=== PATIENT | female | born 1980 | race Caucasian/White ===

== ENCOUNTER → 2024-08-18 10:50 | Outpatient (REF) | payer BC, SELFPAY | LOC: HWWDC 10:50 | PROVIDERS: ATTENDING PHYSICIAN Obstetrics & Gynecology; FAMILY PHYSICIAN Physician Assistant Medical | DX: Z12.31 Encounter for screening mammogram for malignant neoplasm of breast (principal) | CPT/HCPCS: 77063; 77067 ==

== ENCOUNTER → 2024-08-23 09:10 | Outpatient (REF) | payer BC, SELFPAY | LOC: WDC 09:10 | PROVIDERS: ATTENDING PHYSICIAN Obstetrics & Gynecology; FAMILY PHYSICIAN Physician Assistant Medical | DX: R92.8 Other abnormal and inconclusive findings on diagnostic imaging of breast (principal) | CPT/HCPCS: 76642 ==

== ENCOUNTER → 2024-08-29 09:36 | Outpatient (REF) | payer BC, SELFPAY | LOC: HWRAD 09:36 | PROVIDERS: ATTENDING PHYSICIAN Obstetrics & Gynecology; FAMILY PHYSICIAN Physician Assistant Medical; REFERRING PHYSICIAN Urology | DX: R10.2 Pelvic and perineal pain (principal); N39.0 Urinary tract infection, site not specified; M62.89 Other specified disorders of muscle; R35.0 Frequency of micturition; R14.0 Abdominal distension (gaseous) | CPT/HCPCS: 76830; 76856 ==

== ENCOUNTER 2024-10-02 12:51 | Outpatient (RCR) | payer BC, SELFPAY | END 2024-10-02 23:59 | disposition home or self-care (01) | LOC: RPT 12:51 | PROVIDERS: ATTENDING PHYSICIAN Urology; FAMILY PHYSICIAN Nurse Practitioner Adult Health | DX: N39.0 Urinary tract infection, site not specified (principal); M62.89 Other specified disorders of muscle; R10.2 Pelvic and perineal pain; R35.0 Frequency of micturition; R14.0 Abdominal distension (gaseous); Z73.6 Limitation of activities due to disability | CPT/HCPCS: 97140; 97163; 97530 ==

== ENCOUNTER 2024-11-07 06:34 | Outpatient (RCR) | payer BC, SELFPAY | END 2024-11-07 23:59 | disposition home or self-care (01) | LOC: RPT 06:34 | PROVIDERS: ATTENDING PHYSICIAN Urology; FAMILY PHYSICIAN Nurse Practitioner Adult Health | DX: N39.0 Urinary tract infection, site not specified (principal); M62.89 Other specified disorders of muscle; R10.2 Pelvic and perineal pain; R35.0 Frequency of micturition; R14.0 Abdominal distension (gaseous); Z73.6 Limitation of activities due to disability | CPT/HCPCS: 97014; 97110; 97140; 97530 ==

== ENCOUNTER 2024-11-28 11:05 | Outpatient (RCR) | payer BC, SELFPAY | END 2024-11-28 23:59 | disposition home or self-care (01) | LOC: RPT 11:05 | PROVIDERS: ATTENDING PHYSICIAN Urology; FAMILY PHYSICIAN Nurse Practitioner Adult Health | DX: N39.0 Urinary tract infection, site not specified (principal); M62.89 Other specified disorders of muscle; R10.2 Pelvic and perineal pain; R35.0 Frequency of micturition; R14.0 Abdominal distension (gaseous); Z73.6 Limitation of activities due to disability | CPT/HCPCS: 97112; 97140; 97530 ==

== ENCOUNTER 2024-12-06 06:29 | Day surgery (SDC) | payer BC, SELFPAY | END 2024-12-06 14:23 | disposition home or self-care (01) | LOC: GI 06:29 | PROVIDERS: ATTENDING PHYSICIAN Internal Medicine; FAMILY PHYSICIAN Physician Assistant Medical | DX: Z12.11 Encounter for screening for malignant neoplasm of colon (principal); K64.8 Other hemorrhoids; K63.5 Polyp of colon; K58.9 Irritable bowel syndrome, unspecified; D12.1 Benign neoplasm of appendix | CPT/HCPCS: 45380; 88305 ==

== ENCOUNTER 2025-01-01 11:21 | Outpatient (RCR) | payer BC, SELFPAY | END 2025-01-01 23:59 | disposition home or self-care (01) | LOC: RPT 11:21 | PROVIDERS: ATTENDING PHYSICIAN Urology; FAMILY PHYSICIAN Nurse Practitioner Adult Health | DX: N39.0 Urinary tract infection, site not specified (principal); M62.89 Other specified disorders of muscle; R10.2 Pelvic and perineal pain; R35.0 Frequency of micturition; R14.0 Abdominal distension (gaseous); Z73.6 Limitation of activities due to disability | CPT/HCPCS: 97140; 97530 ==

== ENCOUNTER 2025-01-30 10:54 | Outpatient (RCR) | payer BC, SELFPAY | END 2025-01-30 23:59 | disposition home or self-care (01) | LOC: RPT 10:54 | PROVIDERS: ATTENDING PHYSICIAN Urology; FAMILY PHYSICIAN Nurse Practitioner Adult Health | DX: N39.0 Urinary tract infection, site not specified (principal); M62.89 Other specified disorders of muscle; R10.2 Pelvic and perineal pain; R35.0 Frequency of micturition; R14.0 Abdominal distension (gaseous); Z73.6 Limitation of activities due to disability | CPT/HCPCS: 97110; 97530 ==

== ENCOUNTER 2025-02-13 10:52 | Outpatient (RCR) | payer BC, SELFPAY | END 2025-02-13 23:59 | disposition home or self-care (01) | LOC: RPT 10:52 | PROVIDERS: ATTENDING PHYSICIAN Urology; FAMILY PHYSICIAN Nurse Practitioner Adult Health | DX: N39.0 Urinary tract infection, site not specified (principal); M62.89 Other specified disorders of muscle; R10.2 Pelvic and perineal pain; R35.0 Frequency of micturition; R14.0 Abdominal distension (gaseous); Z73.6 Limitation of activities due to disability | CPT/HCPCS: 97140; 97530 ==

== ENCOUNTER 2025-04-03 11:01 | Outpatient (RCR) | payer BC, SELFPAY | END 2025-04-03 23:59 | disposition home or self-care (01) | LOC: RPT 11:01 | PROVIDERS: ATTENDING PHYSICIAN Urology; FAMILY PHYSICIAN Nurse Practitioner Adult Health | DX: N39.0 Urinary tract infection, site not specified (principal); M62.89 Other specified disorders of muscle; R10.2 Pelvic and perineal pain; R35.0 Frequency of micturition; R14.0 Abdominal distension (gaseous); Z73.6 Limitation of activities due to disability | CPT/HCPCS: 97112; 97140; 97530 ==

== ENCOUNTER 2025-05-01 11:09 | Outpatient (RCR) | payer BC, SELFPAY | END 2025-05-01 23:59 | disposition home or self-care (01) | LOC: RPT 11:09 | PROVIDERS: ATTENDING PHYSICIAN Urology; FAMILY PHYSICIAN Nurse Practitioner Adult Health | DX: N39.0 Urinary tract infection, site not specified (principal); M62.89 Other specified disorders of muscle; R10.2 Pelvic and perineal pain; R35.0 Frequency of micturition; R14.0 Abdominal distension (gaseous); Z73.6 Limitation of activities due to disability | CPT/HCPCS: 97140; 97530 ==

== ENCOUNTER 2025-06-08 11:15 | Outpatient (RCR) | payer BC, SELFPAY | END 2025-06-08 23:59 | disposition home or self-care (01) | LOC: RPT 11:15 | PROVIDERS: ATTENDING PHYSICIAN Urology; FAMILY PHYSICIAN Nurse Practitioner Adult Health | DX: N39.0 Urinary tract infection, site not specified (principal); M62.89 Other specified disorders of muscle; R10.2 Pelvic and perineal pain; R35.0 Frequency of micturition; R14.0 Abdominal distension (gaseous); Z73.6 Limitation of activities due to disability | CPT/HCPCS: 97112; 97530 ==

== ENCOUNTER 2025-07-23 14:56 | Outpatient (RCR) | payer BC, SELFPAY | END 2025-07-23 23:59 | disposition home or self-care (01) | LOC: RPT 14:56 | PROVIDERS: ATTENDING PHYSICIAN Urology; FAMILY PHYSICIAN Nurse Practitioner Adult Health | DX: N39.0 Urinary tract infection, site not specified (principal); M62.89 Other specified disorders of muscle; R10.2 Pelvic and perineal pain; R35.0 Frequency of micturition; R14.0 Abdominal distension (gaseous); Z73.6 Limitation of activities due to disability | CPT/HCPCS: 97110; 97140; 97530 ==

== ENCOUNTER 2025-08-10 09:48 | Outpatient (RCR) | payer BC, SELFPAY | END 2025-08-10 23:59 | disposition home or self-care (01) | LOC: RPT 09:48 | PROVIDERS: ATTENDING PHYSICIAN Urology; FAMILY PHYSICIAN Nurse Practitioner Adult Health | DX: N39.0 Urinary tract infection, site not specified (principal); M62.89 Other specified disorders of muscle; R10.2 Pelvic and perineal pain; R35.0 Frequency of micturition; R14.0 Abdominal distension (gaseous); Z73.6 Limitation of activities due to disability; R10.20 Pelvic and perineal pain unspecified side | CPT/HCPCS: 97110; 97140; 97530 ==

== ENCOUNTER → 2025-08-17 12:49 | Outpatient (REF) | payer BC, SELFPAY | LOC: HWRAD 12:49 | PROVIDERS: ATTENDING PHYSICIAN Urology; FAMILY PHYSICIAN Physician Assistant Medical | DX: N39.0 Urinary tract infection, site not specified (principal); R10.9 Unspecified abdominal pain; N30.10 Interstitial cystitis (chronic) without hematuria; N20.0 Calculus of kidney; R14.0 Abdominal distension (gaseous); R19.09 Other intra-abdominal and pelvic swelling, mass and lump; R10.20 Pelvic and perineal pain unspecified side | CPT/HCPCS: 74176 ==

== ENCOUNTER 2025-09-24 08:40 | Outpatient (RCR) | payer BC, SELFPAY | END 2025-09-24 23:59 | disposition home or self-care (01) | LOC: RPT 08:40 | PROVIDERS: ATTENDING PHYSICIAN Urology; FAMILY PHYSICIAN Nurse Practitioner Adult Health | DX: N39.0 Urinary tract infection, site not specified (principal); M62.89 Other specified disorders of muscle; R10.2 Pelvic and perineal pain; R14.0 Abdominal distension (gaseous); R35.0 Frequency of micturition; Z73.6 Limitation of activities due to disability; R10.20 Pelvic and perineal pain unspecified side | CPT/HCPCS: 97140; 97530 ==

== ENCOUNTER → 2025-10-01 09:45 | Outpatient (REF) | payer BC, SELFPAY | LOC: HWRAD 09:45 | PROVIDERS: ATTENDING PHYSICIAN Obstetrics & Gynecology | DX: D25.1 Intramural leiomyoma of uterus (principal); D25.0 Submucous leiomyoma of uterus | CPT/HCPCS: 76830; 76856 ==